=== PATIENT | male | born 1960 | race Two or more races ===

== ENCOUNTER → 2024-05-14 | Outpatient (CLI) | payer MEDICARE, MEDICAID, SELFPAY ==
[2024-05-14 11:03] LABS: Alanine Aminotransferase 29 U/L (10-49); Albumin, Serum 4.4 gm/dL (3.4-4.8); Albumin/Globulin Ratio 1.9 (1.2-2.2); Alkaline Phosphatase 77 U/L (46-116); Anion Gap 5 (7-16); Aspartate Amino Transferase 24 U/L (0-34); BUN/Creatinine Ratio 12 Ratio (12-20); Bilirubin,Total 1.1 mg/dL (0.3-1.2); Blood Urea Nitrogen 13 mg/dL (9-23); Calcium 9.8 mg/dL (8.3-10.6); Calcium (Corrected) 9.8 mg/dL (8.5-10.1); Carbon Dioxide 28.6 mMol/L (20.0-31.0); Chloride 107 mMol/L (98-107); Creatinine (Component) 1.1 mg/dL (0.6-1.3); Globulin 2.3 gm/dL (2.3-3.5); Glucose 106 mg/dL (74-106); Osmolality,Calculated 281 (275-295); Potassium 4.3 mMol/L (3.4-5.1); Sodium 141 mMol/L (136-145); Total Protein 6.7 gm/dL (5.7-8.2); eGFR > 60 See Note
--- NOTE | 2024-05-14 11:03 | XR_ITS ---
Examination: CT chest with intravenous contrast 2-D sagittal and coronal reconstructions Exam date and time: May 14, 2024 1205 hours INDICATIONS: CT chest July 13, 2023 14 mm right thyroid nodule, 33 mm pulmonary nodule left midlung CTDI:vol (mGy) 15.6 DLP: (mGycm) 585 Technique: Multiple axial sections of the thorax have been obtained. Sections have been obtained, 3 mm slice thickness. Mediastinal and lung density settings have been obtained. Intravenous contrast administered, 60 cc Isovue-370. 2-D sagittal, coronal images obtained. Low dose protocols were performed. One or more of the following dose reduction techniques were used; automated exposure control, adjustment of the mA and/or KV according to patient size, use of iterative reconstruction technique. Findings: 14 mm right thyroid nodule No thoracic aortic aneurysm dilatation Pulmonary artery segments are not enlarged Left midlung pulmonary nodule measures 35 mm compared to 34 mm on July 13, 2023 No new nodules No pneumonia or pulmonary edema Benign liver cysts IMPRESSION: Recommend [address] chest follow-up to document stability of left midlung pulmonary nodule
[2024-05-14 11:12] LABS: Vitamin B12 279 pg/mL (211-911); Vitamin D 25 Hydroxy Total 35.3 ng/mL (7.3-40.2)
[2024-05-21 07:10] LABS: Methylmalonic Acid, GC/MS/MS* 266 nmol/L (69-390)
== END | disposition home or self-care (01) ==
PROVIDERS: PCP Nurse Practitioner Family; Referring Provider Nurse Practitioner Family; Visit Provider Nurse Practitioner Family
DX: R91.1 Solitary pulmonary nodule (principal); E53.8 Deficiency of other specified B group vitamins; E66.9 Obesity, unspecified
CPT/HCPCS: 36415; 71260; 80053; 82306; 82607; 83921; A4649; Q9967

== ENCOUNTER 2024-05-17 17:41 | Emergency (ER) | payer MEDICARE, MEDICAID, SELFPAY ==
[2024-05-17 18:02] VITALS: PULSE 60; RESP 18; O2SAT 96
--- NOTE | 2024-05-17 18:55 | XR_ITS ---
Examination: CT brain head without contrast. 2-D sagittal coronal reconstructions Date and time of exam:May 17, 2024 1932 hrs. Indications: Head injury today head pain CTDI: vol (mGy):52.2 DLP: (mGycm):1036 Technique: Multiple CT axial sections of the brain have been obtained, 5 mm slice thickness. Contrast has not been administered. 2-D sagittal, coronal reconstructions have been obtained Low dose protocols were performed. One or more of the following dose reduction techniques were used; automated exposure control, adjustment of the mA and/or KV according to patient size, use of iterative reconstruction technique. Findings: No significant ventricular enlargement. Intra-axial or extra-axial hemorrhage density is not seen. No mass effect or midline shift Basal cisterns are not remarkable. Fourth ventricle is midline. Cranial vault intact. Impression: Negative for acute hemorrhage, mass effect or midline shift Mild chronic ethmoid sphenoid sinusitis
--- NOTE | 2024-05-17 18:55 | PD.EDHEAD ---
ED Head Injury RME/HPI General Chief complaint: Head Injury Stated complaint: HEAD TRAUMA Time Seen by Provider: 05/17/24 18:12 Arrival date/time: 05/17/24 17:41 RME / HPI RME / HPI Narrative: 63 yo male patient c/o head injury. Patient states he was trying to hitch a trailer when a bar swung up and hit him in the back of the head. He remembers events prior to the incident, but does not remember the events immediately after. He reportedly went indoors to inform his but he felt confused and couldn't speak. He felt nauseated and lightheaded. He is not on any blood thinners. C/o pain and a bump to parietal region of left scalp. Related Data Home Medications ?Medication ?Instructions ?Recorded ?Confirmed cholecalciferol (vitamin D3) 125 125 mcg PO QDAY 11/14/22 10/02/23 mcg (5,000 unit) capsule tamsulosin 0.4 mg capsule 0.4 mg PO QHS 11/14/22 10/02/23 amlodipine 10 mg-benazepril 40 mg 1 cap PO QDAY 03/14/23 10/02/23 capsule gabapentin 300 mg capsule 300 mg PO QDAY 09/03/23 10/02/23 ibuprofen 400 mg tablet 400 mg PO Q8H 09/03/23 10/02/23 montelukast 10 mg tablet 10 mg PO QDAY 09/03/23 10/02/23 vibegron 75 mg tablet (Gemtesa) 75 mg PO QDAY 09/03/23 10/02/23 Allergies Allergy/AdvReac Type Severity Reaction Status Date / Time nickel Allergy Rash Verified 10/02/23 10:22 Review of Systems Review of Systems Narrative Review of Systems: CONST: Negative for fever, body aches and chills. HENT: Negative for neck pain/stiffness, headache, congestion, sore throat, swelling. Positive scalp pain EYES: Negative for discharge/pain or vision changes. RESP: Negative for cough/hemoptysis and shortness of breath. CV: Negative chest pain, difficulty breathing, palpitations. ABD: Negative pain, nausea, vomiting. : Negative increase frequency, dysuria, blood in urine or stool. MUSC: Negative for muscle aches, edema. SKIN: Negative rash, lesions/sores. NEURO: Negative headache, dizziness, weakness. ED Exam Narrative Physical exam: GENERAL APPEARANCE: alert and oriented x 4, well-developed, well-nourished, no acute distress HEENT: Normocephalic, left scalp tenderness, no ecchymosis, no deformity, no laceration LUNGS: No increased work of breathing, no respiratory distress HEART: Good peripheral perfusion ABDOMEN: non distended EXTREMITIES: atraumatic; no edema NEUROLOGIC: awake; alert and oriented x4; cranial nerves II-XII grossly intact PSYCHIATRIC: appropriate mood and affect SKIN: warm, dry, normal color; no rashes Course Quality Measures none Orders Category Date Time Status CT head/brain wo con Stat Exams 05/17/24 18:55 Completed Vital Signs Vital signs: Vital Signs Temperature 97.6 F 05/17/24 19:34 Respiratory Rate 18 05/17/24 19:34 Blood Pressure 152/84 H 05/17/24 19:34 Pulse Oximetry (%) 96 05/17/24 19:34 Oxygen Delivery Method Room Air 05/17/24 19:34 Head Injury Patient data External records reviewed:: [facility] previous records Clinical information provided by:: patient Social determinants that could affect healthcare access:: none Patient has the following chronic illnesses:: Hypertension How is presenting disease/condition affected by chronic disease/condition?: uneffected by Evaluation data The following diagnostics were reviewed and interpreted by me:: radiology exam(s) (Reviewed CT brain without contrast. Agree with radiologist interpretation.) Lab and/or radiology exams considered but not ordered:: None Interpretation Summary: As above Medications / Prescriptions Medications or Prescriptions considered but not ordered:: None Medication administrations:: None Consultations Consultation(s) initiated? (list below): No Diagnosis Differential diagnosis head injury: concussion without loss of consciousness, closed head injury, subarachnoid hematoma and subdural hematoma Most likely diagnosis given after review of the tests above:: Closed head injury Admission Indicated Admission indicated?: not indicated Explain why admission is indicated or not indicated:: Stable for outpatient follow-up Admission Request Was there a request for admission?: No Disposition Plan Disposition Plan: Discharge Discharge Attestation Discharge Attestation: The patient and all family members were given an opportunity to ask questions and understood the discharge instructions. Discharge instructions specifically effects, indications for sooner follow up or return to the emergency department, and the expected course of current diagnosis. Patient condition: Stable Discharge Plan Plan Patient Disposition: HOME (Self Care) Prescriptions/Referrals Prescriptions/Med Rec: No Action cholecalciferol (vitamin D3) 125 mcg (5,000 unit) capsule 125 mcg PO QDAY tamsulosin 0.4 mg capsule 0.4 mg PO QHS gabapentin 300 mg capsule 300 mg PO QDAY montelukast 10 mg tablet 10 mg PO QDAY ibuprofen 400 mg tablet 400 mg PO Q8H Gemtesa 75 mg tablet 75 mg PO QDAY amlodipine-benazepril 10-40 mg Capsule 1 cap PO QDAY Referrals: Blanka Clark NP [Primary Care Provider] - In 1 week Problem List Clinical Impression: Closed head injury Patient/Caregiver Discharge Instructions Education Materials: ED Head Injury (Adult) Print Language: Japanese Stand Alone Forms: Katrina Award Info., Patient Portal Info Letter
[2024-05-17 19:34] VITALS: BP 152/84; RESP 18; TEMP 36.4; O2SAT 96
== END 2024-05-17 21:25 | disposition home or self-care (01) ==
PROVIDERS: Emergency Provider Emergency Medicine; PCP Nurse Practitioner Family
DX: S09.90XA Unspecified injury of head, initial encounter (principal); W20.8XXA Other cause of strike by thrown, projected or falling object, initial encounter; Y93.89 Activity, other specified; I10 Essential (primary) hypertension
CPT/HCPCS: 70450; 99284

== ENCOUNTER → 2024-06-26 | Outpatient (CLI) | payer MEDICARE, MEDICAID, SELFPAY ==
--- NOTE | 2024-06-26 17:00 | XR_ITS ---
Examination: Thyroid sonography complete Technique: Grayscale sonographic images thyroid lobes with color flow analysis Exam date and time: June 26, 2024 1730 hrs. Indications: CT chest study May 14, 2024 14 mm right thyroid nodule, history left thyroidectomy, secondary to thyroid cancer, diagnosis history thyroid cancer Findings: Right thyroid 5.4 x 2.3 x 2.7 cm Upper pole nodule 2.2 x 1.6 x 2.0 cm Midpole nodule 6 x 6 x 8 mm Lower pole nodule 7 x 5 x 7 mm Absent left thyroid lobe Impression: Thyroid nodules as above, recommend ultrasound-guided fine-needle aspiration of the large vascular upper pole right thyroid nodule 2.2 x 1.6 x 2.0 cm
== END | disposition home or self-care (01) ==
PROVIDERS: PCP Nurse Practitioner Family; Referring Provider Nurse Practitioner Family; Visit Provider Nurse Practitioner Family
DX: E04.2 Nontoxic multinodular goiter (principal)
CPT/HCPCS: 76536

== ENCOUNTER → 2024-07-11 | Outpatient (CLI) | payer MEDICARE, MEDICAID, SELFPAY ==
--- NOTE | 2024-07-11 14:27 | XR_ITS ---
Examination: PA lateral chest 2 views TECHNIQUE: Upright PA lateral chest 2 views Exam date 9: July 11, 2024 1438 hours INDICATIONS: Dyspnea today beginning 2 weeks ago. FINDINGS: Interval large pulmonary mass in the left lower lobe, 4.5 cm Normal heart size Cardiac leads satisfactory position Moderate osteopenia IMPRESSION: Interval large pulmonary mass in the left lung 4.5 cm, lung carcinoma included in the differential Recommend CT chest post intravenous contrast follow-up
== END | disposition home or self-care (01) ==
PROVIDERS: PCP Nurse Practitioner Family; Referring Provider Nurse Practitioner Family; Visit Provider Nurse Practitioner Family
DX: R91.8 Other nonspecific abnormal finding of lung field (principal)
CPT/HCPCS: 71046

== ENCOUNTER → 2024-07-18 | Outpatient (CLI) | payer MEDICARE, MEDICAID, SELFPAY ==
[2024-07-18 09:53] LABS: Basophils # (Auto) 0.1 Thou/mm3 (0.0-0.2); Basophils % (Auto) 1 % (0-2.5); Eosinophils # (Auto) 0.1 Thou/mm3 (0.0-0.5); Eosinophils % (Auto) 1 % (0-10); Hematocrit 44.1 % (41.0-53.0); Hemoglobin 15.5 g/dL (13.5-16.0); Immature Granulocytes % (Auto) 0 % (0-0); Immature Granulocytes Auto 0.02 Thou/mm3 (0.00-0.00); Lymphocytes # (Auto) 1.3 Thou/mm3 (1.0-4.8); Lymphocytes % (Auto) 15 % (10-50); Mean Corpuscular HGB Conc 35.1 g/dl (31.0-37.0); Mean Corpuscular Hemoglobin 31.1 pg (25.0-35.0); Mean Corpuscular Volume 88 fL (80-100); Monocytes # (Auto) 0.4 Thou/mm3 (0.0-0.8); Monocytes % (Auto) 5 % (0-12); Neutrophils # (Auto) 6.3 Thou/mm3 (1.8-7.7); Neutrophils % (Auto) 78 % (37-80); Nucleated Red Blood Cell % 0 /100 WBC (0); Platelet Count 205 Thou/mm3 (140-440); RDW Standard Deviation 39.6 fL (35.1-43.9); Red Blood Count 4.99 Miln/mm3 (4.50-5.90); White Blood Count 8.2 Thou/mm3 (3.8-10.6)
[2024-07-18 10:22] LABS: Alanine Aminotransferase 27 U/L (10-49); Albumin, Serum 4.2 gm/dL (3.4-4.8); Albumin/Globulin Ratio 1.8 (1.2-2.2); Alkaline Phosphatase 73 U/L (46-116); Anion Gap 8 (7-16); Aspartate Amino Transferase 21 U/L (0-34); BUN/Creatinine Ratio 12 Ratio (12-20); Bilirubin,Total 1.1 mg/dL (0.3-1.2); Blood Urea Nitrogen 12 mg/dL (9-23); Calcium 9.4 mg/dL (8.3-10.6); Calcium (Corrected) 9.4 mg/dL (8.5-10.1); Carbon Dioxide 27.5 mMol/L (20.0-31.0); Chloride 107 mMol/L (98-107); Globulin 2.3 gm/dL (2.3-3.5); Glucose 113 mg/dL (74-106); Osmolality,Calculated 283 (275-295); Potassium 4.2 mMol/L (3.4-5.1); Sodium 142 mMol/L (136-145); Total Protein 6.5 gm/dL (5.7-8.2); eGFR > 60 See Note
== END | disposition home or self-care (01) ==
LOC: COPL 09:07
PROVIDERS: PCP Nurse Practitioner Family; Referring Provider Nurse Practitioner Family; Visit Provider Nurse Practitioner Family
DX: R91.8 Other nonspecific abnormal finding of lung field (principal)
CPT/HCPCS: 36415; 80053; 85025

== ENCOUNTER → 2024-07-21 | Outpatient (CLI) | payer MEDICARE, MEDICAID, SELFPAY ==
--- NOTE | 2024-07-21 08:36 | XR_ITS ---
Examination: CT chest with intravenous contrast 2-D sagittal and coronal reconstructions Exam date and time: July 21, 2024 at 0857 hours INDICATIONS: CT chest May 14, 2024 left midlung pulmonary nodule 35 mm CTDI:vol (mGy) 14.2 DLP: (mGycm) 133 Technique: Multiple axial sections of the thorax have been obtained. Sections have been obtained, 3 mm slice thickness. Mediastinal and lung density settings have been obtained. Intravenous contrast administered, 60 cc Isovue-370. 2-D sagittal, coronal images obtained. Low dose protocols were performed. One or more of the following dose reduction techniques were used; automated exposure control, adjustment of the mA and/or KV according to patient size, use of iterative reconstruction technique. Findings: 11 mm right thyroid nodule No thoracic aortic aneurysm dilatation or dissection No pulmonary artery emboli on this non-CTA study 36 mm pulmonary nodule in the left midlung compared to 35 mm on May 14, 2024 No new pulmonary nodules Multiple liver cysts Spleen is not enlarged No gallstones No pancreatic mass IMPRESSION: 11 mm right thyroid nodule 36 mm pulmonary nodule left midlung compared to 35 mm on May 14, 2024 and compared to 33 mm on December 28, 2022 exam
== END | disposition home or self-care (01) ==
PROVIDERS: PCP Nurse Practitioner Family; Referring Provider Nurse Practitioner Family; Visit Provider Nurse Practitioner Family
DX: E04.1 Nontoxic single thyroid nodule (principal); R91.1 Solitary pulmonary nodule
CPT/HCPCS: 71260; A4649; Q9967

== ENCOUNTER → 2024-08-26 | Outpatient (CLI) | payer MEDICARE, MEDICAID, SELFPAY ==
[2024-08-25 11:39] LABS: Basophils # (Auto) 0.1 Thou/mm3 (0.0-0.2); Basophils % (Auto) 1 % (0-2.5); Eosinophils # (Auto) 0.2 Thou/mm3 (0.0-0.5); Eosinophils % (Auto) 2 % (0-10); Hematocrit 44.5 % (41.0-53.0); Hemoglobin 15.7 g/dL (13.5-16.0); Immature Granulocytes % (Auto) 0 % (0-0); Immature Granulocytes Auto 0.03 Thou/mm3 (0.00-0.00); Lymphocytes # (Auto) 1.8 Thou/mm3 (1.0-4.8); Lymphocytes % (Auto) 20 % (10-50); Mean Corpuscular HGB Conc 35.3 g/dl (31.0-37.0); Mean Corpuscular Volume 88 fL (80-100); Monocytes # (Auto) 0.6 Thou/mm3 (0.0-0.8); Monocytes % (Auto) 7 % (0-12); Neutrophils # (Auto) 6.2 Thou/mm3 (1.8-7.7); Neutrophils % (Auto) 70 % (37-80); Nucleated Red Blood Cell % 0 /100 WBC (0); Platelet Count 227 Thou/mm3 (140-440); RDW Standard Deviation 39.4 fL (35.1-43.9); Red Blood Count 5.07 Miln/mm3 (4.50-5.90); White Blood Count 8.9 Thou/mm3 (3.8-10.6)
[2024-08-25 11:43] LABS: INR 1.2 (0.9-1.3); Partial Thromboplastin Time 38.5 Seconds (22.0-36.0)
--- NOTE | 2024-08-26 09:00 | XR_ITS ---
Exam: Ultrasound-guided right thyroid biopsy. Date and time: 08/26/2024, 9:23 AM Indication: Right thyroid nodule Technique: After a discussion of risks and benefits informed written consent was obtained. A timeout was completed verifying correct patient, procedure, site, positioning. The patient was placed in the supine position on the exam table. Preliminary ultrasound examination demonstrated a heterogeneous low density nodule in the right thyroid lobe. This was targeted for fine-needle aspiration. The overlying skin was cleaned and draped in normal sterile surgical fashion. 10 cc of 1% lidocaine was used for local anesthesia. Using ultrasound guidance a 25-gauge needle was sequentially advanced into the targeted mass. Multiple aspirates were obtained and placed in solution and sent to laboratory for analysis. The needle was withdrawn and hemostasis was achieved. The access site was covered with a sterile dressing. There were no immediate complications. IMPRESSION: Successful right thyroid nodule fine needle aspiration as above.
== END | disposition home or self-care (01) ==
LOC: SDIM 08:40 → SIRX 08:47
PROVIDERS: Radiology Diagnostic Radiology; PCP Nurse Practitioner Family; Referring Provider Nurse Practitioner Family; Visit Provider Nurse Practitioner Family
DX: E04.1 Nontoxic single thyroid nodule (principal); Z01.812 Encounter for preprocedural laboratory examination
CPT/HCPCS: 10005; 36415; 85025; 85610; 85730

== ENCOUNTER → 2024-09-30 | Outpatient (CLI) | payer MEDICARE, MEDICAID, SELFPAY ==
[2024-09-29 09:39] LABS: Basophils # (Auto) 0.1 Thou/mm3 (0.0-0.2); Basophils % (Auto) 1 % (0-2.5); Eosinophils # (Auto) 0.1 Thou/mm3 (0.0-0.5); Eosinophils % (Auto) 2 % (0-10); Hemoglobin 15.4 g/dL (13.5-16.0); Immature Granulocytes % (Auto) 0 % (0-0); Immature Granulocytes Auto 0.02 Thou/mm3 (0.00-0.00); Lymphocytes # (Auto) 1.7 Thou/mm3 (1.0-4.8); Lymphocytes % (Auto) 22 % (10-50); Mean Corpuscular HGB Conc 34.2 g/dl (31.0-37.0); Mean Corpuscular Hemoglobin 31.2 pg (25.0-35.0); Mean Corpuscular Volume 91 fL (80-100); Monocytes # (Auto) 0.5 Thou/mm3 (0.0-0.8); Monocytes % (Auto) 6 % (0-12); Neutrophils # (Auto) 5.2 Thou/mm3 (1.8-7.7); Neutrophils % (Auto) 69 % (37-80); Nucleated Red Blood Cell % 0 /100 WBC (0); Platelet Count 195 Thou/mm3 (140-440); RDW Standard Deviation 40.5 fL (35.1-43.9); Red Blood Count 4.93 Miln/mm3 (4.50-5.90); White Blood Count 7.5 Thou/mm3 (3.8-10.6)
[2024-09-29 09:55] LABS: Anion Gap 5 (7-16); BUN/Creatinine Ratio 11 Ratio (12-20); Blood Urea Nitrogen 11 mg/dL (9-23); Calcium 9.1 mg/dL (8.3-10.6); Chloride 110 mMol/L (98-107); Glucose 110 mg/dL (74-106); Osmolality,Calculated 285 (275-295); Potassium 4.6 mMol/L (3.4-5.1); Sodium 143 mMol/L (136-145); eGFR > 60 See Note
[2024-09-29 09:56] LABS: INR 1.2 (0.9-1.3); Partial Thromboplastin Time 38.2 Seconds (22.0-36.0); Prothrombin Time 12.8 Seconds (9.0-12.2)
[2024-09-30 08:32] VITALS: BP 125/81; PULSE 77; RESP 14; TEMP 36.2; O2SAT 97
[2024-09-30 08:45] VITALS: BMI 30.1
--- NOTE | 2024-09-30 10:20 | PC.NURSE ---
Patient was explained that procedure could not take place today due to Technical problems with CT. Patient and family expressed understanding and have no further question.
== END | disposition home or self-care (01) ==
LOC: SIRX 08:14
PROVIDERS: Radiology Diagnostic Radiology; PCP Nurse Practitioner Family; Referring Provider Nurse Practitioner Family; Visit Provider Nurse Practitioner Family
DX: Z53.8 Procedure and treatment not carried out for other reasons (principal); Z01.812 Encounter for preprocedural laboratory examination
CPT/HCPCS: 36415; 80048; 85025; 85610; 85730

== ENCOUNTER → 2024-10-07 | Outpatient (CLI) | payer MEDICARE, MEDICAID, SELFPAY ==
[2024-10-07 09:29] LABS: Glucose Estimated Average 103 mg/dL (80-131); Hemoglobin A1C 5.2 % Hgb (4.8-6.0)
[2024-10-07 09:39] LABS: Folate 16.42 ng/mL (>5.38); Vitamin D 25 Hydroxy Total 47.7 ng/mL (7.3-40.2)
[2024-10-07 09:47] LABS: Cardiac Risk Estimate 3.7 RATIO (4.0-6.7); Cholesterol 161 mg/dL (132-200); Free T4 (Free Thyroxine) 1.15 ng/dL (0.89-1.76); HDL Cholesterol 44 mg/dL (40-60); LDL Cholesterol,Calculated 102 mg/dL (0-130); Thyroid Stimulating Hormone 1.81 uIU/mL (0.55-4.78); Triglycerides 76 mg/dL (30-150)
[2024-10-09 22:04] LABS: PSA, Free 0.21 ng/mL; PSA, Total 0.7 ng/mL (< OR = 4.0)
== END | disposition home or self-care (01) ==
LOC: COPL 08:23
PROVIDERS: PCP Nurse Practitioner Family; Referring Provider Nurse Practitioner Family; Visit Provider Nurse Practitioner Family
DX: E78.5 Hyperlipidemia, unspecified (principal); E04.1 Nontoxic single thyroid nodule; E55.9 Vitamin D deficiency, unspecified; E53.8 Deficiency of other specified B group vitamins; Z13.1 Encounter for screening for diabetes mellitus; Z12.5 Encounter for screening for malignant neoplasm of prostate
CPT/HCPCS: 36415; 80061; 82306; 82746; 83036; 84153; 84154; 84425; 84439; 84443

== ENCOUNTER 2024-10-16 08:12 | Outpatient (CLI) | payer MEDICARE, MEDICAID, SELFPAY ==
--- NOTE | 2024-10-13 16:27 | PC.NURSE ---
called patient for liason, patient is driving and cant do liason at this time for safery reasons, i did inform him of when the procedure is and when to come to hospital to get lab work done and register, liason will be completed at bed side on the day of procedure
[2024-10-14 09:59] LABS: Basophils # (Auto) 0.1 Thou/mm3 (0.0-0.2); Basophils % (Auto) 1 % (0-2.5); Eosinophils # (Auto) 0.1 Thou/mm3 (0.0-0.5); Eosinophils % (Auto) 2 % (0-10); Hematocrit 42.8 % (41.0-53.0); Hemoglobin 15.2 g/dL (13.5-16.0); Immature Granulocytes % (Auto) 0 % (0-0); Immature Granulocytes Auto 0.02 Thou/mm3 (0.00-0.00); Lymphocytes # (Auto) 1.7 Thou/mm3 (1.0-4.8); Lymphocytes % (Auto) 22 % (10-50); Mean Corpuscular HGB Conc 35.5 g/dl (31.0-37.0); Mean Corpuscular Hemoglobin 31.7 pg (25.0-35.0); Mean Corpuscular Volume 89 fL (80-100); Monocytes # (Auto) 0.5 Thou/mm3 (0.0-0.8); Monocytes % (Auto) 6 % (0-12); Neutrophils # (Auto) 5.3 Thou/mm3 (1.8-7.7); Neutrophils % (Auto) 70 % (37-80); Nucleated Red Blood Cell % 0 /100 WBC (0); Platelet Count 188 Thou/mm3 (140-440); Red Blood Count 4.79 Miln/mm3 (4.50-5.90); White Blood Count 7.6 Thou/mm3 (3.8-10.6)
[2024-10-14 10:07] LABS: INR 1.2 (0.9-1.3); Partial Thromboplastin Time 37.5 Seconds (22.0-36.0); Prothrombin Time 12.7 Seconds (9.0-12.2)
[2024-10-14 10:15] LABS: Anion Gap 5 (7-16); BUN/Creatinine Ratio 14 Ratio (12-20); Blood Urea Nitrogen 13 mg/dL (9-23); Calcium 9.1 mg/dL (8.3-10.6); Chloride 104 mMol/L (98-107); Creatinine (Component) 0.9 mg/dL (0.6-1.3); Glucose 106 mg/dL (74-106); Osmolality,Calculated 277 (275-295); Potassium 4.5 mMol/L (3.4-5.1); Sodium 139 mMol/L (136-145); eGFR > 60 See Note
[2024-10-15 07:41] VITALS: BP 130/77; PULSE 60; RESP 16; TEMP 36.7; O2SAT 94; BMI 30.4
--- NOTE | 2024-10-15 09:56 | PC.NURSE ---
CT down from 8-12. Rescheduled patient for tomorrow at 0930
[2024-10-16] VITALS (10 sets, daily range): BP systolic 119–141; BP diastolic 79–89; PULSE 60–62; RESP 11–18; TEMP 36.3–36.9; O2SAT 94–99
--- NOTE | 2024-10-16 | XR_ITS ---
Examination: AP chest single view Technique one AP portable semiupright chest single view Exam date and time: October 16, 2024 1158 hours INDICATIONS: Post biopsy left lung mass today FINDINGS: No pneumothorax post left lung mass biopsy Mild prominence cardiac contour Cardiac leads satisfactory position IMPRESSION: No pneumothorax post biopsy today
--- NOTE | 2024-10-16 09:30 | XR_ITS ---
Examination: CT-guided percutaneous biopsy pulmonary mass left midlung CT chest without intravenous contrast Date and time of procedure: October 16, 2024 1118 hours INDICATIONS: CT chest October 18, 2024 36 mm pulmonary nodule left midlung Informed consent provided. A timeout was completed verifying correct patient, procedure, site and positioning. Technique: Axial 3 mm sections were obtained for localization of the pulmonary mass left midlung Appropriate area is marked. The patient's site was prepped and draped in sterile fashion Maximal sterile barrier technique utilized, including hand hygiene Local anesthesia was obtained with 1% lidocaine. Low dose protocols were performed. One or more of the following dose reduction techniques were used; automated exposure control, adjustment of the mA and/or KV according to patient size, use of iterative reconstruction technique. Utilizing CT fluoroscopic guidance for core biopsies of the pulmonary mass left midlung obtained with a 21-gauge needle Patient appears in stable condition during this procedure. At completion of the procedure, the patient is in satisfactory condition. Estimated blood loss 0 cc Complete pathology report to follow. Impression: Possible CT-guided percutaneous biopsy pulmonary mass left midlung
[2024-10-16] MEDS: SODIUM CHLORIDE 0.9% 500 ML 500 ML 20 ML IV (11:10)
[2024-10-16] MEDS: fentaNYL CIT INJ 50 mCg/ML AMP 2ML 100 MCG IVP (11:25)
--- NOTE | 2024-10-16 13:00 | XR_ITS ---
Examination: AP chest single view Technique one AP semiupright portable chest single view Exam date and time: October 16, 2024 1313 hours INDICATIONS: Postop left lung pulmonary mass biopsy today. FINDINGS: No pneumothorax post left lung pulmonary mass biopsy Mild enlargement cardiac contour IMPRESSION:: No pneumothorax post biopsy left lung mass today
--- NOTE | 2024-10-16 13:33 | PC.NURSE ---
1148 patient is awake alert, breathing unlabored, s/p ct guided left lung biopsy, dressing to left upper back dry with no bleeding, report received from Heath ROSENBERG, Stat xray order now, second xray in 1hr. 1205 chest xray ready by dr estrada, no pneumothorax seen, second xray due 1300 1240 report given to Heidy ROSENBERG, patient waiting for second xray to be done at 1300
== END 2024-10-16 13:45 | disposition home or self-care (01) ==
PROVIDERS: Radiology Diagnostic Radiology; PCP Nurse Practitioner Family; Referring Provider Nurse Practitioner Family; Visit Provider Nurse Practitioner Family
DX: J84.10 Pulmonary fibrosis, unspecified (principal); Z01.812 Encounter for preprocedural laboratory examination
CPT/HCPCS: 32408; 36415; 77012; 80048; 85025; 85610; 85730; J3010; J7040

== ENCOUNTER → 2025-01-13 | Outpatient (CLI) | payer MEDICARE, MEDICAID, SELFPAY ==
--- NOTE | 2025-01-13 10:10 | XR_ITS ---
Examination: CT brain head without contrast. 2-D sagittal coronal reconstructions Date and time of exam:January 13, 2025 1215 hours, comparison May 17, 2024 INDICATIONS: Blunt forehead head trauma one week ago with persistent headache CTDI: vol (mGy):50.7 DLP: (mGycm):1049 Technique: Multiple CT axial sections of the brain have been obtained, 5 mm slice thickness. Contrast has not been administered. 2-D sagittal, coronal reconstructions have been obtained Low dose protocols were performed. One or more of the following dose reduction techniques were used; automated exposure control, adjustment of the mA and/or KV according to patient size, use of iterative reconstruction technique. Findings: No significant ventricular enlargement. Intra-axial or extra-axial hemorrhage density is not seen. No mass effect or midline shift Basal cisterns are not remarkable. Fourth ventricle is midline. Cranial vault intact. Impression: Negative for acute hemorrhage, mass effect or midline shift
== END | disposition home or self-care (01) ==
LOC: CDIM 09:31
PROVIDERS: PCP Family Medicine; Referring Provider Nurse Practitioner Family; Visit Provider Nurse Practitioner Family
DX: S09.8XXA Other specified injuries of head, initial encounter (principal); X58.XXXA Exposure to other specified factors, initial encounter
CPT/HCPCS: 70450

== ENCOUNTER → 2025-05-26 | Outpatient (CLI) | payer MEDICARE, MEDICAID, SELFPAY ==
[2025-05-26 08:49] LABS: Albumin, Serum 4.2 gm/dL (3.4-4.8); Anion Gap 10 (7-16); BUN/Creatinine Ratio 8 Ratio (12-20); Blood Urea Nitrogen 7 mg/dL (9-23); Calcium 8.7 mg/dL (8.3-10.6); Calcium (Corrected) 8.7 mg/dL (8.5-10.1); Carbon Dioxide 28.1 mMol/L (20.0-31.0); Chloride 108 mMol/L (98-107); Creatinine (Component) 0.9 mg/dL (0.6-1.3); Glucose 124 mg/dL (74-106); Osmolality,Calculated 289 (275-295); Phosphorous 4.6 mg/dL (2.4-5.1); Potassium 4.2 mMol/L (3.4-5.1); Sodium 146 mMol/L (136-145); eGFR > 60 See Note
[2025-05-26 09:12] LABS: Syphilis Nonreactive (Nonreactive)
== END | disposition home or self-care (01) ==
LOC: COPL 07:38
PROVIDERS: PCP Family Medicine; Referring Provider Psychiatry & Neurology Neurology; Visit Provider Psychiatry & Neurology Neurology
DX: I10 Essential (primary) hypertension (principal)
CPT/HCPCS: 36415; 80069; 86780